=== PATIENT | female | born 1985 | race Caucasian/White ===

== ENCOUNTER 2020-02-22 10:23 | Emergency (ER) | payer OTHER ==
[~2020-02-22] VITALS: Ht 162.6 cm; Wt 120.0 kg
[2020-02-22 10:48] LABS: BILIRUBIN,URINE NEGATIVE (NEG); CLARITY,URINE CLOUDY; COLOR,URINE YELLOW; NITRITE,URINE NEGATIVE (NEG); PROTEIN,URINE 100 mg/dL (NEG-TRACE); UROBILINOGEN,URINE 0.2 mg/dL (0.2 mg/dL)
[2020-02-22 10:55] VITALS: BP 118/81
[2020-02-22 10:58] LABS: BACTERIA,URINE MODERATE /HPF (0-FEW); SQUAMOUS EPITHELIAL CELL,UR FEW /LPF; WBC,URINE >40 /HPF (0-4)
[2020-02-22] MEDS ORDERED: IV NORMAL SALINE 1000ML BAG 1,000 ML IV SCH (10:58)
[2020-02-22] MEDS ORDERED: KETOROLAC 30 MG/ML VIAL. IVP ONE (11:00)
[2020-02-22] MEDS ORDERED: ONDANSETRON PF 4 MG/2 ML VIAL. IVP ONE (11:00)
[2020-02-22 11:26] LABS: BARBITURATES NEG (NEG); BENZODIAZEPINES NEG (NEG); CANNABINOIDS NEG (NEG); COCAINE NEG (NEG); METHADONE NEG (NEG); OPIATES NEG (NEG); PHENCYCLIDINE NEG (NEG)
--- NOTE | 2020-02-22 11:26 | RAD ---
EXAM: Abdomen and pelvis CT without intravenous contrast. HISTORY: Back and flank pain. TECHNIQUE: Computed tomographic images of the abdomen and pelvis were obtained without contrast. Multiplanar reformatting was performed. *One or more of the following individualized dose reduction techniques were utilized for this examination: 1. Automated exposure control. 2. Adjustment of the mA and/or kV according to patient size. 3. Use of iterative reconstruction technique. COMPARISON: None. FINDINGS: Evaluation of the lower thorax demonstrates no infiltrate, pleural effusion or pneumothorax. There are implanted breast prostheses. The heart is normal in size. No suspicious hepatic lesion is seen. The gallbladder, pancreas, spleen and adrenal glands are unremarkable. No renal or ureteral stone is seen. There is no hydronephrosis. There is no appendicitis. There is no bowel obstruction. There is a moderate amount of colonic stool. There is an IUD within the uterus. The bladder wall slightly thickened, likely due to relative decreased urinary bladder volume. The ovaries are not well seen due to the absence of contrast on multiple adjacent bowel loops. There is no convincing lymphadenopathy. There is no suspicious osseous lesion. IMPRESSION: No convincing acute abdominal or pelvic finding. Electronically signed by: Marissa Valenzuela MD (02/22/2020 11:23 AM) [id number]
[2020-02-22 11:28] LABS: AMPHETAMINE/METHAMPHETAMINE NEG (NEG)
[2020-02-22] MEDS ORDERED: cefTRIAXone IV Push 1 GM VIAL. IVP ONE (11:30)
[2020-02-22 11:34] LABS: BASO % 0 % (0-3); EOS # 0.1 x10^3/uL (0.0-0.7); EOS % 1 % (0-3); HEMATOCRIT 37.7 % (36.0-47.0); HEMOGLOBIN 13.1 g/dL (12.0-15.5); LYMPH # 1.6 x10^3/uL (1.0-4.8); LYMPH % 14 % (24-48); MEAN CORPUSCULAR HEMOGLOBIN 33 pg (25-35); MEAN CORPUSCULAR HGB CONC 35 g/dL (31-37); MEAN CORPUSCULAR VOLUME 94 fL (79-100); MONO # 0.9 x10^3/uL (0.0-1.1); MONO % 8 % (0-9); NEUT # 8.9 x10^3/uL (1.8-7.7); NEUT % 77 % (31-73); PLATELET COUNT 265 x10^3/uL (140-400); RED BLOOD COUNT 4.02 x10^6/uL (3.50-5.40); RED CELL DISTRIBUTION WIDTH 12.5 % (11.5-14.5); WHITE BLOOD COUNT 11.5 x10^3/uL (4.0-11.0)
[2020-02-22] MEDS ORDERED: CEPH-264 PO (11:36)
--- NOTE | 2020-02-22 11:36 | PHYS DOC ---
General Adult EDM: Chief Complaint: PAIN ON URINATION HPI: HPI: Patient is a 35 year old female who presents with 1 week of low mid abdominal pain that wraps around to her back. She states she is had some nausea and some vomiting but denies any diarrhea or fever. She rates her pain a 7 out of 10. She states she has not taken any medication for it. She denies any medical history or taking any medications daily. Patient states she does have burning with urination. She states the pain comes and goes in waves. Patient denies chest pain, diarrhea, fever, shortness of breath, cough, dizziness, headache, numbness or tingling. (PAUL HOWARD APRN) Review of Systems: Review of Systems: Constitutional: Denies fever or chills. [] Eyes: Denies change in visual acuity. [] HENT: Denies nasal congestion or sore throat. [] Respiratory: Denies cough or shortness of breath. [] Cardiovascular: Denies chest pain or edema. [] GI: Low mid abdominal pain, nausea, vomiting, denies bloody stools or diarrhea. [] : +dysuria. [] Musculoskeletal: Left lower back pain or joint pain. [] Integument: Denies rash. [] Neurologic: Denies headache, focal weakness or sensory changes. [] Endocrine: Denies polyuria or polydipsia. [] Lymphatic: Denies swollen glands. [] Psychiatric: Denies depression or anxiety. [] (PAUL HOWARD APRN) Heart Score: Risk Factors: Risk Factors: DM, Current or recent (<one month) smoker, HTN, HLP, family history of CAD, obesity. Risk Scores: Score 0 - 3: 2.5% MACE over next 6 weeks - Discharge Home Score 4 - 6: 20.3% MACE over next 6 weeks - Admit for Clinical Observation Score 7 - 10: 72.7% MACE over next 6 weeks - Early Invasive Strategies (PAUL HOWARD APRN) Current Medications: Current Medications Medications (Trade) Dose Ordered Sig/Shadi Start Time Stop Time Status Last Admin Dose Admin Ceftriaxone Sodium (Rocephin) 1 gm 1X ONCE 02/22/20 11:30 02/22/20 11:31 Ketorolac Tromethamine (Toradol 30mg Vial) 30 mg 1X ONCE 02/22/20 11:00 02/22/20 11:22 DC Ondansetron HCl (Zofran) 4 mg 1X ONCE 02/22/20 11:00 02/22/20 11:22 DC Sodium Chloride 1,000 ml @ 1,000 mls/hr Q1H 02/22/20 10:58 02/22/20 11:57 (REINIERPAULLAVERN Linn APRN) Allergies: Allergies: Allergies Coded Allergies Type Severity Reaction Last Updated Verified No Known Drug Allergies 02/22/20 No (PAUL HOWARD APRN) Physical Exam: PE: Constitutional: Well developed, well nourished, no acute distress, non-toxic appearance. [] HENT: Normocephalic, atraumatic, bilateral external ears normal, oropharynx moist, no oral exudates, nose normal. [] Eyes: PERRLA, EOMI, conjunctiva normal, no discharge. [] Neck: Normal range of motion, no tenderness, supple, no stridor. [] Cardiovascular:Heart rate regular rhythm, no murmur [] Lungs & Thorax: Bilateral breath sounds clear to auscultation [] Abdomen: Bowel sounds normal, soft, no tenderness, no masses, no pulsatile masses. [] Skin: Warm, dry, no erythema, no rash. [] Back: No tenderness, no CVA tenderness. [] Extremities: No tenderness, no cyanosis, no clubbing, ROM intact, no edema. [] Neurologic: Alert and oriented X 3, normal motor function, normal sensory function, no focal deficits noted. [] Psychologic: Affect normal, judgement normal, mood normal. Normal physical exam [] (PAUL HOWARD APRN) Current Patient Data: Labs: Laboratory Tests Test 02/22/20 10:36 02/22/20 10:39 Urine Collection Type Void Urine Color Yellow Urine Clarity Cloudy Urine pH 6.0 (<5.0-8.0) Urine Specific Voss 1.015 (1.000-1.030) Urine Protein 100 mg/dL (NEG-TRACE) Urine Glucose (UA) Negative mg/dL (NEG) Urine Ketones (Stick) Negative mg/dL (NEG) Urine Blood Large (NEG) Urine Nitrite Negative (NEG) Urine Bilirubin Negative (NEG) Urine Urobilinogen Dipstick 0.2 mg/dL (0.2 mg/dL) Urine Leukocyte Esterase Large (NEG) Urine RBC 3-5 /HPF (0-2) Urine WBC >40 /HPF (0-4) Urine Squamous Epithelial Cells Few /LPF Urine Bacteria Moderate /HPF (0-FEW) POC Urine HCG, Qualitative Hcg negative (Negative) (PAUL HOWARD APRN) EKG: EKG: [] (PAUL HOWARD APRN) Radiology/Procedures: Radiology/Procedures: [] Impression: [facility] [address] [place] [address] IMAGING REPORT Signed PATIENT: KINGS MA ACCOUNT: [id number] : 1985 LOCATION: ER AGE: 35 SEX: F EXAM STATUS: REG ER ORD. PHYSICIAN: PAUL HOWARD APRN REASON: low mid abd pain and left flank x 1 day PROCEDURE: CT ABDOMEN PELVIS WO CONTRAST EXAM: Abdomen and pelvis CT without intravenous contrast. HISTORY: Back and flank pain. TECHNIQUE: Computed tomographic images of the abdomen and pelvis were obtained without contrast. Multiplanar reformatting was performed. *One or more of the following individualized dose reduction techniques were utilized for this examination: 1. Automated exposure control. 2. Adjustment of the mA and/or kV according to patient size. 3. Use of iterative reconstruction technique. COMPARISON: None. FINDINGS: Evaluation of the lower thorax demonstrates no infiltrate, pleural effusion or pneumothorax. There are implanted breast prostheses. The heart is normal in size. No suspicious hepatic lesion is seen. The gallbladder, pancreas, spleen and adrenal glands are unremarkable. No renal or ureteral stone is seen. There is no hydronephrosis. There is no appendicitis. There is no bowel obstruction. There is a moderate amount of colonic stool. There is an IUD within the uterus. The bladder wall slightly thickened, likely due to relative decreased urinary bladder volume. The ovaries are not well seen due to the absence of contrast on multiple adjacent bowel loops. There is no convincing lymphadenopathy. There is no suspicious osseous lesion. IMPRESSION: No convincing acute abdominal or pelvic finding. Electronically signed by: Marissa Perdomo MD (02/22/2020 11:23 AM) [id number] DICTATED and SIGNED BY: MARISSA PERDOMO MD DATE: 02/22/20 1123 (PAUL HOWARD APRN) Course & Med Decision Making: Course & Med Decision Making Pertinent Labs and Imaging studies reviewed. (See chart for details) Alert and oriented. Speaks in full clear sentences. Skin pink and dry. Ambulatory with steady gait. Abdomen is soft and nontender. Afebrile. Upon walking in the room patient was drinking water as she has not vomited since she is been here. I did educate the patient to stop drinking water until she has been fully evaluated. No CVA tenderness. Patient is afebrile and she does not have a white count. She has no tenderness to the right lower quadrant or rebound tenderness. I am not concerned with appendicitis. Patient has a urinary tract infection. I have ordered Rocephin in the ED. I will place her on Keflex and she follow-up with her primary care provider. [] (PAUL HOWARD APRN) Dragon Disclaimer: Draglilly Disclaimer: This electronic medical record was generated, in whole or in part, using a voice recognition dictation system. (PAUL HOWARD APRN) Departure Departure Impression: Primary Impression: Urinary tract infection Qualified Codes: N39.0 - Urinary tract infection, site not specified Disposition: 01 HOME, SELF-CARE Condition: STABLE Referrals: NO PCP (PCP) Patient Instructions: Urinary Tract Infection Additional Instructions: Follow up with primary care provider. Drink plenty of fluids. Take medication as prescribed and with food. Scripts Hydrocodone/Apap 5-325 (NORCO 5-325 TABLET) 1 Each Tablet 1 TAB PO PRN Q6HRS PRN for PAIN, #10 TAB 0 Refills Prov: PAUL HOWARD APRN 02/22/20 Cephalexin (KEFLEX) 500 Mg Capsule 1 CAP PO BID for 7 Days, #14 CAP 0 Refills Prov: PAUL HOWARD APRN 02/22/20 Justicifation of Admission Dx: Justifications for Admission: Justification of Admission Dx: N/A (PAUL HOWARD APRN) Attending Signature Attending Signature I have participated in the care of this patient and I have reviewed and agree with all pertinent clinical information above including history, exam, and recommendations. (GOLLAPALLIBELLA DEANNA M APRN Feb 22, 2020 11:36 BELLA ROBIN DO Feb 22, 2020 17:18
[2020-02-22 11:44] LABS: PROTHROMBIN TIME PATIENT 12.2 SEC (11.7-14.0)
[2020-02-22] MEDS ORDERED: HYDR-3164 PO (11:45)
[2020-02-22 11:55] LABS: CALCIUM 8.4 mg/dL (8.5-10.1); CREATININE 0.7 mg/dL (0.6-1.0); GFR 94.7; POTASSIUM 3.7 mmol/L (3.5-5.1)
[2020-02-22 12:00] LABS: ALBUMIN 3.7 g/dL (3.4-5.0); ALBUMIN/GLOBULIN RATIO 1.1 (1.0-1.7); TOTAL BILIRUBIN 0.4 mg/dL (0.2-1.0)
== END 2020-02-22 12:32 | disposition home or self-care (01) ==
LOC: ER 10:23
DX: N39.0 Urinary tract infection, site not specified (principal); R30.9 Painful micturition, unspecified; R11.2 Nausea with vomiting, unspecified; Z79.899 Other long term (current) drug therapy
CPT/HCPCS: 36415; 74176; 80053; 80307; 81001; 81025; 83690; 85025; 85610; 87086; 96361; 96374; 96375; 99284; J0696; J1885; J2405; J7030